=== PATIENT | male | born 1940 | race Caucasian/White ===

== ENCOUNTER 2016-10-07 01:11 | Inpatient (IN) | payer OTHER ==
--- NOTE | ~2016-10-07 | DS ---
Discharge Summary [facility] [address] [place]. [address] NAME: SHAWN WILDE : 39 STATUS : DIS IN PAT#: [id number] AGE: 76 ADM/REG DATE : 10/07/16 MR#: [id number] REPORT SERV DATE: 10/10/16 DICTATED BY: CAN JOHNSON DATE: 10/09/16 REPORT STATUS : Draft TRANSCRIBED BY: MODL DATE: 10/09/16 ADMISSION DATE: 10/07/2016 DISCHARGE DATE: 10/09/2016 DISCHARGE DIAGNOSES: Include, 1. Acute on chronic systolic heart failure, most recent ejection fraction of 37%. 2. Acute kidney injury. Most recent creatinine was 2.20 in the setting of chronic kidney disease stage 3. 3. Hypertensive urgency. 4. Acute hypoxic respiratory failure that is resolved. 5. Acute chronic obstructive pulmonary disease exacerbation. 6. Leukocytosis. Most recent white blood cells were 12.4 in the setting of steroid usage. 7. History of coronary artery disease, coronary artery bypass grafting and aortic valve replacement. 8. Questionable obstructive sleep apnea. DISCHARGE MEDICATIONS: 1. Norvasc 5 mg daily. 2. Carvedilol 12.5 mg twice a day. 3. Lasix 40 mg p.o. twice a day at 8 a.m. and 4 p.m. 4. Losartan 25 mg daily, but I have instructed him not to start this until after followup with his primary care and his BMP is rechecked. 5. ProAir inhaler p.r.n. every four hours for shortness of breath. HISTORY OF PRESENT ILLNESS: A very pleasant 76-year-old white male, who cannot read, who presented with shortness of breath and respiratory distress. Please see initial H and P of Dr. Mehrdad Andrade. The patient was admitted to the Hospitalist Service for further evaluation and treatment. He was given aggressive diuresis. Lab work was ordered and followed and supportive care with oxygen, nebulizers, and steroids. PROCEDURES AND IMAGING DURING THIS ADMISSION: Include an echocardiogram that showed an ejection fraction of 37%, moderate left ventricular diastolic dysfunction, and prior aortic valve prosthesis. HOSPITAL COURSE: I began seeing the patient on 10/07/2016 where he had begun to diurese with his Lasix therapy and was beginning to feel some better. He underwent the above-described echocardiogram. I began to titrate his steroids down. He was seen by the Heart Failure Education team during this admission and will be following up with them outpatient as well. He continued to improve, although his creatinine did increase up to 2.35. This was followed closely and seemed to plateau to 2.20 and a baseline creatinine of 1.7. He was felt safe for discharge home as symptomatically he had improved and his blood pressures had been stable and he had been afebrile, and he was discharged home on 10/09/2016 with instructions to follow up with his primary care in 10 days to have his BMP rechecked. He will also have home health at discharge for assistance with medications and prescriptions were written as the patient had been apparently out of his regimen of medications. I have answered questions for the patient at bedside. He is in agreement with this plan going forward. Discharge Summary [address] [address] NAME: SHAWN WILDE : 39 STATUS : DIS IN PAT#: [id number] AGE: 76 ADM/REG DATE : 10/07/16 MR#: [id number] REPORT SERV DATE: 10/10/16 DICTATED BY: CAN JOHNSON DATE: 10/09/16 REPORT STATUS : Draft TRANSCRIBED BY: MODRome DATE: 10/09/16 Most recent orthostatics were also within normal limits and the patient has ambulated on room air and his sat is 98%-99%. Please note, greater than 30 minutes was spent on this discharge for medication teaching, followup planning, and further disposition. SHANNNO/NAIMA Can Johnson NP / [id number] CC: Stephanie Huston M.D. NO PCP
--- NOTE | ~2016-10-07 | HP ---
History And Physical [place] [id number] [place]. [address] NAME: SHAWN REED : 39 STATUS : ADM Lyubov PAT#: [id number] AGE: 76 ADM/REG DATE : 10/07/16 MR#: [id number] REPORT SERV DATE: 10/07/16 DICTATED BY: JEROME OBRIEN DATE: 10/07/16 REPORT STATUS : Draft TRANSCRIBED BY: MODL DATE: 10/07/16 DATE OF ADMISSION: 10/07/2016 POINT OF ENTRY: [facility] Emergency Department. PRIMARY CARE PHYSICIAN: Unknown at this time. PRIMARY BANDAGE MAKER: Dr. Lennon. CHIEF COMPLAINT: Shortness of breath and respiratory distress. HISTORY OF PRESENT ILLNESS: Mr. Reed is a 76-year-old gentleman with a history of chronic systolic congestive heart failure with an ejection fraction of 30% as well as COPD, not on any home oxygen; chronic kidney disease, stage 3; and coronary artery disease, who presents to the emergency department today with reports of acute onset of shortness of breath and respiratory distress. The patient states that he was in his usual state of health until approximately 11:30 Thursday evening, when he would lay down to go to bed and had the acute onset of smothering sensation with associated shortness of breath. He got up out of bed, the shortness of breath continued to worse, and he started to hear gurgling, he started to develop impending respiratory distress and therefore called EMS. EMS came to his house, evaluated the patient and then call [facility] for emergent transfer to [facility]. Between initial EMS as well as [facility] he received 40 mg of IV Lasix, two doses of sublingual nitroglycerin, and he was placed on a nitroglycerin infusion at 40 mcg/minute. Upon initial arrival to the emergency department, the patient was noted to be very hypertensive 222/121. He was saturating 100% on 15 L non-rebreather. The patient was given some additional Solu-Medrol for concerns for COPD exacerbation. He was very quickly weaned off the non-rebreather as well as a nitroglycerin drip and is currently saturating well on 1 L by nasal cannula and his blood pressure now improved to 160s/80s. Chest x-ray is concerning for intravascular volume overload. Remainder of his labs are otherwise unremarkable except for an elevated BNP level of 1491. The patient was subsequently admitted to the Hospitalist Service for further evaluation and management. The patient states he was doing well up until Thursday evening when he lay down to go to bed. He denied any recent fevers, night sweats, chills, chest pain, palpitations, abdominal pain, nausea, vomiting, diarrhea, constipation, dysuria, lower extremity edema, melena, hematochezia, or hemoptysis. He states he does have occasional troubles with wheezing, but denied any kenyon cough, sputum production, or shortness of breath, again prior to 11:30 last night. He does admit that he is noncompliant with sodium and fluid restriction, but states that he has been taking his Lasix and has not missed any recent doses. REVIEW OF SYSTEMS: Comprehensive review of systems otherwise negative unless listed in history present illness. History And Physical [address] [address] NAME: SHAWN REED : 39 STATUS : ADM Lyubov PAT#: [id number] AGE: 76 ADM/REG DATE : 10/07/16 MR#: [id number] REPORT SERV DATE: 10/07/16 DICTATED BY: JEROME OBRIEN DATE: 10/07/16 REPORT STATUS : Draft TRANSCRIBED BY: NAIMA DATE: 10/07/16 PREVIOUS MEDICAL HISTORY: 1. Chronic systolic congestive heart failure with an ejection fraction of 30% from 2013. 2. Coronary artery disease with prior coronary artery bypass grafting. 3. Hypertension. 4. Hyperlipidemia. 5. COPD, not on home oxygen. 6. Chronic kidney disease, stage 3. 7. Valvular disease status post mitral valve repair and aortic valve replacement. SURGICAL HISTORY: 1. Coronary artery bypass grafting. 2. LV aneurysm repair. 3. Bioprosthetic aortic valve replacement. 4. Mitral valve repair with ring. ALLERGIES: NO KNOWN DRUG ALLERGIES. HOME MEDICATIONS: Pending at the time of dictation. SOCIAL HISTORY: He is a former smoker, quit about eight to nine years ago. Denies any alcohol or illicits. Currently lives alone. FAMILY MEDICAL HISTORY: Mother with history of throat cancer. Father with what sounds to be like either cerebral aneurysm or stroke. Siblings with diabetes. LABS AND IMAGIN. White count is 11.3, hemoglobin is 13.5, hematocrit is 42.2, platelet count is 194, and INR is 1.0. 2. Sodium is 139, potassium 4.5, chloride 105, carbon dioxide 28, BUN 27, creatinine 1.79, glucose is 132, calcium is 8.8, magnesium 2.1. Protein 8.7, albumin is 4.1, bilirubin is 0.3, ALT is 33, AST 40, and alkaline phosphatase is 98. 3. Troponin is 0.04. BNP is 1491. 4. Lactic acid 0.6. 5. Urinalysis: Spec gravity is 1.006, no evidence of any infection. 6. Chest x-ray per my review shows mild cardiomegaly with some mild intravascular volume overload and pulmonary edema. 7. EKG per my review shows sinus tachycardia with first-degree AV block with some inferolateral T-wave inversions. 8. ABG: Initial one was pH is 7.39, pCO2 is 53, PO2 is 386, bicarb is 25, and saturating 100% on non rebreather. On recheck, pH is now 7.36, pCO2 is 39, PO2 is 77, bicarb is 21, and saturating 95% on 3 L by nasal cannula. PHYSICAL EXAMINATION: VITAL SIGNS: Temperature is afebrile, pulse is 106, respirations 32, saturating 100% on a non-rebreather, and blood pressure initially 222/121, blood pressure is now 161/82, pulse is 65, and saturating 99% on 1 L nasal cannula. GENERAL: The patient is awake, alert, and in no acute distress. Resting comfortably in bed. History And Physical [address] [address] NAME: SHAWN REED : 39 STATUS : ADM Lyubov PAT#: [id number] AGE: 76 ADM/REG DATE : 10/07/16 MR#: [id number] REPORT SERV DATE: 10/07/16 DICTATED BY: JEROME OBRIEN DATE: 10/07/16 REPORT STATUS : Draft TRANSCRIBED BY: MODRoem DATE: 10/07/16 He is a well-developed, well-nourished, elderly male in no acute distress. No family is at bedside. HEENT: Atraumatic and normocephalic. Moist mucous membranes. Pupils are equal, round, reactive to light and accommodation. Extraocular eye movements intact. No scleral icterus. NECK: No carotid bruits. Some mild jugular venous distention. CARDIAC: Regular rate and rhythm. 2/6 systolic murmur heard best over the left lower sternal border. Normal S1, S2. LUNGS: Decreased breath sounds in the bases. Does have some inspiratory rales and crackles about half-way up the lung base bilaterally, in no respiratory distress, but is on some oxygen by nasal cannula. ABDOMEN: Soft, nontender, and nondistended with good bowel sounds. No rebound, guarding, or rigidity. EXTREMITIES: Warm and perfused. No cyanosis, clubbing, or edema. SKIN: Warm and dry. PSYCH: Affect appropriate. NEURO: Alert and oriented x3. Cranial nerves 2 through 12 grossly intact. Speech is normal. Gait not assessed. ASSESSMENT AND PLAN: Mr. Reed is a 76-year-old gentleman, who presents with acute onset of shortness of breath, orthopnea, and paroxysmal nocturnal dyspnea, and found to have evidence of acute on chronic systolic congestive heart failure with acute hypoxic respiratory failure as well as what sounds like possible acute chronic obstructive pulmonary disease exacerbation. PROBLEM LIST: 1. Acute on chronic systolic congestive heart failure. 2. Acute hypoxic respiratory failure. 3. Hypertensive urgency. 4. Acute chronic obstructive pulmonary disease exacerbation. 5. Chronic kidney disease, stage 3. 6. Leukocytosis. PLAN: 1. Acute on chronic systolic congestive heart failure. The patient readily admits to noncompliance with fluid and sodium restriction. Talking to his nurse it appears that the patient may not be compliant with his antihypertensives as well as his Lasix medications. We will place the patient on IV Lasix for the first 24 hours. Recheck an echocardiogram, as the most recent is from 2013. 2. Acute hypoxic respiratory failure. The patient is doing much better now, he has been weaned down to 1 L by nasal cannula, and continue to wean as tolerated. 3. Acute chronic obstructive pulmonary disease exacerbation. The patient does report some wheezing and shortness of breath prior to this episode last night, and he does have some mild wheezing on exam, so therefore we put him on some low-dose steroids as well as bronchodilators. 4. Hypertensive urgency. The patient's initial blood pressure was very elevated to 222/121 likely secondary to medication noncompliance as well as acute respiratory distress, this is now much improved to 160s/80s without any administration of any History And Physical [facility] [address] [facility] [place]. [address] NAME: SHAWN REED : 39 STATUS : ADM Lyubov PAT#: [id number] AGE: 76 ADM/REG DATE : 10/07/16 MR#: [id number] REPORT SERV DATE: 10/07/16 DICTATED BY: JEROME OBRIEN DATE: 10/07/16 REPORT STATUS : Draft TRANSCRIBED BY: MODRome DATE: 10/07/16 antihypertensives. We will continue the patient's home antihypertensives, hydralazine IV p.r.n. for elevated blood pressure. Given evidence of some volume overload and pulmonary edema we will place the patient on some low-dose nitro paste as well. 5. Leukocytosis likely due to stress response. Chest x-ray is without evidence of pneumonia. Urinalysis is clear. Continue to monitor. 6. Chronic kidney disease, stage 3. I do not have a recent baseline on this gentleman. We will avoid nephrotoxic medications initially. Continue to monitor the patient's creatinine. 7. DVT prophylaxis. Heparin subcu. CODE STATUS: The patient wishes to be full code. RICKEY/NAIMA Jerome Obrien MD / [id number] CC: Jeovanny Kang Jr, MD
[2016-10-07 00:59] LABS: BE (BASE EXCESS) -2.5 MEQ/L (0 +/- 2.5); CARBOXYHEMOGLOBIN 0.9 % (0-3); DEVICE SM; HCO3 (ACTUAL BICARBONATE) 24.7 MEQ/L (23-27); HEMOBLOGIN CONTENT 13.7 G/DL (14-18); INSTRUMENT SERIAL # 8087; METHEMOGLOBIN 0.4 % (0-3); PCO2 (CO2 TENSION) 53 MMHG (35-45); PO2 (O2 TENSION) 387 MMHG (79-93); SAMPLE Arterial; pH 7.29 (7.37-7.43)
[2016-10-07 01:04] LABS: BASOPHILS 0.6 %; BASOPHILS ABSOLUTE 0.07 10/3/uL (0.0-0.16); EOSINOPHILS ABSOLUTE 0.34 10/3/uL (0.0-0.53); HEMATOCRIT 42.2 % (40.0-51.0); HEMOGLOBIN 13.5 g/dL (13.6-17.8); IMMATURE GRANULOCYTES 0.4 %; IMMATURE GRANULOCYTES ABSOLUTE 0.04 10/3/uL (0.0-0.11); LYMPHOCYTES 17.1 %; LYMPHOCYTES ABSOLUTE 1.93 10/3/uL (0.67-4.30); MEAN CORPUSCULAR HEMOGLOB 27.5 pg (26.0-34.0); MEAN PLATELET VOLUME 10.9 fL (9.2-13.0); MONOCYTES 7.2 %; MONOCYTES ABSOLUTE 0.81 10/3/uL (0.21-1.20); NEUTROPHILS 71.7 %; PLATELET COUNT 194 10/3/uL (150-400); RBC DISTRIBUTION WIDTH 16.3 % (12.0-16.0); RED CELL COUNT 4.91 10/6/uL (4.7-6.1)
[2016-10-07 01:06] LABS: ER CBC TAT 0 Hrs 06 MinsNP; MANUAL DIFF NO %; MEAN CORPUSCULAR VOLUME 85.9 fL (80-100); WHITE BLOOD CELLS 11.3 10/3/uL (4.5-10.5)
[2016-10-07 01:12] LABS: PARTIAL THROMBO TIME 29.7 SEC (22.5-37.2); PROTIME (NOT ORD) 13.5 SEC (12.0-14.5)
[2016-10-07 01:23] LABS: LACTATE 0.6 MMOL/L (0.3-2.4)
[2016-10-07 01:24] LABS: ALBUMIN 4.1 G/DL (3.5-5.0); ALKALINE PHOSPHATASE 98 U/L (45-117); CALCIUM, SERUM 8.8 MG/DL (8.5-10.4); CHEST PAIN PROFILE TAT 0 Hrs 24 Mins; CHLORIDE, SERUM 105 MMOL/L (96-112); CO2 (CARBON DIOXIDE) 28 MMOL/L (24-34); CREATININE 1.79 MG/DL (0.70-1.30); GFR AFRICAN AMERICAN 41 ML/MIN (>=60); GFR NON AFRICAN AMERICAN 36 ML/MIN (>=60); POTASSIUM, SERUM 4.5 MMOL/L (3.5-5.3); SGOT(AST) 48 U/L (5-40); SGPT(ALT) 33 U/L (5-65); SODIUM, SERUM 139 MMOL/L (135-148); TOTAL BILIRUBIN 0.3 MG/DL (0-1.2); TOTAL PROTEIN 8.7 G/DL (6.0-8.5); TROPONIN I 0.04 NG/ML (<0.05)
[2016-10-07 01:27] LABS: BUN (BLOOD UREA NITROGEN) 27 MG/DL (6-23); GLUCOSE, SERUM 132 MG/DL (60-99)
[2016-10-07 01:28] LABS: DIRECT BILIRUBIN < 0.1 MG/DL (0.0-0.4); INDIRECT BILIRUBIN(NOT ORDER) 0.2 MG/DL (0.1-0.9)
[2016-10-07 01:57] LABS: ASCORBIC ACID (UR NOT ORDER) NEG (NEG); BILIRUBIN, URINE NEGATIVE (NEG); ER URINALYSIS TAT 0 Hrs 00 Mins; KETONE, URINE NEGATIVE (NEG); LEUKOCYTE ESTERASE(NOT OR NEG (NEG); NITRITE (URINE) NEG (NEG); WBC (NOT ORDERED) (RFLEX) 0 (0-5)
[2016-10-07 02:47] LABS: ALLENS TEST Neg; BE (BASE EXCESS) -3.8 MEQ/L (0 +/- 2.5); DEVICE NC; HCO3 (ACTUAL BICARBONATE) 21.2 MEQ/L (23-27); HEMOBLOGIN CONTENT 13.2 G/DL (14-18); INSTRUMENT SERIAL # 8087; METHEMOGLOBIN 0.2 % (0-3); O2 CONTENT 17.4 VOL% (18-24); PCO2 (CO2 TENSION) 39 MMHG (35-45); PO2 (O2 TENSION) 77 MMHG (79-93); SAMPLE Arterial; pH 7.36 (7.37-7.43)
[2016-10-07] MEDS ORDERED: L40 PO (03:29)
[2016-10-07] MEDS ORDERED: COREG12 PO (03:30)
[2016-10-07] MEDS ORDERED: NORV5 PO (03:32)
[2016-10-07] MEDS ORDERED: COZ50 PO (03:32)
[2016-10-07 06:25] LABS: CPK 74 U/L (0-200)
[2016-10-07 06:26] LABS: CK-MB 2.6 NG/ML
[2016-10-07 06:28] LABS: TROPONIN I 0.08 NG/ML (<0.05)
[2016-10-07 10:19] LABS: CK-MB 2.8 NG/ML; CPK 75 U/L (0-200)
[2016-10-08 04:07] LABS: BASOPHILS 0.1 %; BASOPHILS ABSOLUTE 0.01 10/3/uL (0.0-0.16); EOSINOPHILS 0 %; HEMOGLOBIN 12.3 g/dL (13.6-17.8); IMMATURE GRANULOCYTES 0.1 %; IMMATURE GRANULOCYTES ABSOLUTE 0.01 10/3/uL (0.0-0.11); LYMPHOCYTES 7.4 %; LYMPHOCYTES ABSOLUTE 0.96 10/3/uL (0.67-4.30); MEAN CORPUS HGB CONC 32.4 g/dL (32.0-36.0); MEAN CORPUSCULAR HEMOGLOB 26.9 pg (26.0-34.0); MEAN CORPUSCULAR VOLUME 83.2 fL (80-100); MEAN PLATELET VOLUME 10.2 fL (9.2-13.0); MONOCYTES 7.2 %; MONOCYTES ABSOLUTE 0.94 10/3/uL (0.21-1.20); NEUTROPHILS 85.2 %; NEUTROPHILS ABSOLUTE 11.06 10/3/uL (2.02-8.40); PLATELET COUNT 167 10/3/uL (150-400); RBC DISTRIBUTION WIDTH 16.3 % (12.0-16.0); RED CELL COUNT 4.57 10/6/uL (4.7-6.1)
[2016-10-08 04:08] LABS: MANUAL DIFF NO %
[2016-10-08 04:19] LABS: CHLORIDE, SERUM 103 MMOL/L (96-112); CO2 (CARBON DIOXIDE) 26 MMOL/L (24-34); GFR AFRICAN AMERICAN 30 ML/MIN (>=60); GFR NON AFRICAN AMERICAN 26 ML/MIN (>=60); GLUCOSE, SERUM 135 MG/DL (60-99); POTASSIUM, SERUM 4.5 MMOL/L (3.5-5.3); SODIUM, SERUM 138 MMOL/L (135-148)
[2016-10-08 04:23] LABS: BUN (BLOOD UREA NITROGEN) 46 MG/DL (6-23); CREATININE 2.35 MG/DL (0.70-1.30)
[2016-10-08 17:13] LABS: CREATININE, URINE 34.2 MG/DL
[2016-10-09 04:31] LABS: BASOPHILS 0.1 %; BASOPHILS ABSOLUTE 0.01 10/3/uL (0.0-0.16); EOSINOPHILS 0 %; HEMATOCRIT 38.5 % (40.0-51.0); HEMOGLOBIN 12.5 g/dL (13.6-17.8); IMMATURE GRANULOCYTES 0.3 %; IMMATURE GRANULOCYTES ABSOLUTE 0.04 10/3/uL (0.0-0.11); LYMPHOCYTES 9.3 %; LYMPHOCYTES ABSOLUTE 1.15 10/3/uL (0.67-4.30); MEAN CORPUS HGB CONC 32.5 g/dL (32.0-36.0); MEAN CORPUSCULAR HEMOGLOB 27.2 pg (26.0-34.0); MEAN CORPUSCULAR VOLUME 83.7 fL (80-100); MEAN PLATELET VOLUME 10.7 fL (9.2-13.0); MONOCYTES 6.7 %; MONOCYTES ABSOLUTE 0.83 10/3/uL (0.21-1.20); NEUTROPHILS 83.6 %; NEUTROPHILS ABSOLUTE 10.32 10/3/uL (2.02-8.40); PLATELET COUNT 179 10/3/uL (150-400); RBC DISTRIBUTION WIDTH 16.1 % (12.0-16.0); WHITE BLOOD CELLS 12.4 10/3/uL (4.5-10.5)
[2016-10-09 04:33] LABS: MANUAL DIFF NO %
[2016-10-09 04:37] LABS: CALCIUM, SERUM 8.9 MG/DL (8.5-10.4); CHLORIDE, SERUM 103 MMOL/L (96-112); CO2 (CARBON DIOXIDE) 25 MMOL/L (24-34); GFR AFRICAN AMERICAN 32 ML/MIN (>=60); GFR NON AFRICAN AMERICAN 28 ML/MIN (>=60); GLUCOSE, SERUM 125 MG/DL (60-99); POTASSIUM, SERUM 4.4 MMOL/L (3.5-5.3); SODIUM, SERUM 137 MMOL/L (135-148)
[2016-10-09 04:43] LABS: BUN (BLOOD UREA NITROGEN) 61 MG/DL (6-23)
[2016-10-09] MEDS ORDERED: PROAIR HFA INH (12:45)
== END 2016-10-09 16:57 | disposition home health service (06) | DRG 291 ==
LOC: ER 01:11 → CDU1 04:07
PROVIDERS: Internal Medicine; Specialist
DX: I13.0 Hypertensive heart and chronic kidney disease with heart failure and stage 1 through stage 4 chronic kidney disease, or unspecified chronic kidney disease (principal); I50.23 Acute on chronic systolic (congestive) heart failure; J96.01 Acute respiratory failure with hypoxia; N17.9 Acute kidney failure, unspecified; J44.1 Chronic obstructive pulmonary disease with (acute) exacerbation; N18.3 Chronic kidney disease, stage 3 (moderate); I16.0 Hypertensive urgency; I25.10 Atherosclerotic heart disease of native coronary artery without angina pectoris; G47.33 Obstructive sleep apnea (adult) (pediatric); E78.5 Hyperlipidemia, unspecified; D72.829 Elevated white blood cell count, unspecified; Z95.1 Presence of aortocoronary bypass graft; Z95.2 Presence of prosthetic heart valve; Z87.891 Personal history of nicotine dependence
CPT/HCPCS: 36600; 71010; 80048; 80076; 81001; 82550; 82553; 82570; 82805; 83605; 83735; 83880; 84300; 84484; 85025; 85610; 85730; 87040; 93005; 93306; 94640; 96374; 99291; A9270-GY; J2930